=== PATIENT | male | born 1975 | race Caucasian/White ===

== ENCOUNTER 2018-02-05 10:39 | Outpatient (CLI) | payer BC ==
--- NOTE | 2018-02-05 13:12 | MRI ---
MRI LUMBAR SPINE WITHOUT CONTRAST: INDICATIONS: History of numbness within both legs and feet sometime. TECHNIQUE: Multiplanar, multisequence MR images were obtained of the lumbar spine without IV contrast. FINDINGS: Bone marrow signal intensity demonstrates diffuse intermediate signal, which can be seen with red mar row hyperplasia. This can also be seen with patients who are obese or who are chronic smokers. The conus is seen to terminate at approximately L1. At L5-S1, there is a broad-based bulge with a superimposed right central to paracentral disk extrusio n. This extrusion extends inferiorly, along the posterior aspect of the S1 vertebra approximately 1. 2 cm. Portions of the extrusion do appear to contact the traversing left S1 nerve root on image 51 o f series 6. There is no definite compression of the nerve. The broad-based bulge and facet hypertro phy at L5-S1 induces mild bilateral neural foraminal narrowing, right greater than left. At L4-L5, there is mild facet joint degenerative change without appreciable central canal or neural f oraminal narrowing. At L3-L4, there is mild facet joint degenerative change without appreciable central canal or neural f oraminal narrowing. At L2-L3, there is no appreciable central canal or neural foraminal narrowing. At L1-L2, there is no appreciable central canal or neural foraminal narrowing. At T12-L1, there is no appreciable central canal or neural foraminal narrowing. IMPRESSION: 1. Central or right paracentral disk extrusion at L5-S1 induces contact of the traversing left S1 ne rve root without definite impingement. 2. Mild bilateral neural foraminal narrowing at L5-S1, right greater than left. 3. Intermediate bone marrow signal intensity of the lumbar spine can be seen with patients with junior legal secretary kassidy anemia, obesity, or smoking. Recommend correlation with the CBC. POS: [facility]
== END 2018-02-05 10:40 | disposition home or self-care (01) ==
LOC: SCSMRI 10:39
PROVIDERS: ATTEND Family Medicine
DX: M54.5 Low back pain (principal); M51.86 Other intervertebral disc disorders, lumbar region; M99.83 Other biomechanical lesions of lumbar region
CPT/HCPCS: 72148